=== PATIENT | female | born 1995 | race Caucasian/White ===

== ENCOUNTER 2020-09-17 01:01 | Emergency (ER) | payer MEDICAID, SELFPAY ==
[2020-09-17 03:56] VITALS: BP 119/59; PULSE 86; RESP 18; TEMP 37.1; O2SAT 100; BMI 34.7
--- NOTE | 2020-09-17 04:31 | ED_ITS ---
HPI - Skin/Abscess/Foreign Bdy General Chief complaint: Skin/Abscess/Foreign Body Stated complaint: Abscess Time Seen by Provider: 09/17/20 04:31 Source: patient Mode of arrival: ambulatory History of Present Illness HPI narrative: 25-year-old female with worsening abscess this started off as a pimple like structure on the right superior anterior chest wall without associated fevers, chills, nausea, vomiting, trauma. Patient states that she has gotten this 1 other time on her left thigh. Related Data Previous Rx's Medication Instructions Recorded sulfamethoxazole-trimethoprim 1 tab PO Q12H 5 Days #10 tab 09/17/20 [Bactrim DS] Allergies Allergy/AdvReac Type Severity Reaction Status Date / Time TUNA FISH Allergy Intermediate SWELLING Uncoded 02/21/20 16:29 SEAFOOD Allergy Mild RASH Uncoded 02/21/20 16:29 Review of Systems Review of Systems: Pertinent positives and negatives as stated in HPI 10 point review systems is otherwise negative. PMFSH Past Medical History Source: nursing notes reviewed Social History Social History Advance Directives: No Physical Exam Vital Signs: Vital Signs: Last Vital Signs Temp 98.7 F 09/17/20 03:56 Pulse 86 09/17/20 03:56 Resp 18 09/17/20 03:56 BP 119/59 L 09/17/20 03:56 Pulse Ox 100 09/17/20 03:56 Body Mass Index 34.7 VITAL SIGNS: Reviewed. GENERAL: Well developed, well nourished, in no acute distress. HEAD: Normocephalic/atraumatic OROPHARYNX: no oral lesions noted, posterior pharynx clear NECK: Supple, no adenopathy LUNGS: Normal breath sounds. No adventitious sounds or accessory muscle use. SpO2<100> CHEST WALL: There is an approximate 2-2.5 cm abscess to the right anterior chest wall without drainage, but fluctuant and palpated induration CARDIOVASCULAR: Regular rate and rhythm without noted murmurs ABDOMEN: Soft, non-tender, non-distended with bowel sounds. NEUROLOGIC: Alert and oriented x 4. Course Course Course Narrative: 25-year-old female with history and clinical presentation consistent with abscess to right chest wall without systemic symptoms. Incision and drainage was performed with copious amounts of purulence drainage expressed and patient will go home with instructions for warm moist compresses and preventive antibiotics. Procedures Abscess I/D Site: chest Side (if applicable): right Sedation/analgesia: none Technique: incised with blade Amount of fluid expressed (mL): 30 Sent for culture/gram staining?: No Irrigation: Yes Packing used?: none Complications: pain Discharge Plan Discharge Clinical Impression: Abscess of skin or subcutaneous tissue Patient Disposition: Home, Self-Care Instructions: Abscess (ED), Abscess Incision and Drainage (DC) Additional Instructions: 1. Tylenol 1000 mg, orally, every 6 hours as needed for pain control. 2. Ibuprofen 400 mg, orally with milk or food, every 6 hours as needed for pain control. 3. Continue to apply warm moist compresses 3 to 4 times a day to encourage further drainage. Do not hesitate to return to the emergency department should you experience any acute worsening of her symptoms. Prescriptions: New sulfamethoxazole-trimethoprim [Bactrim DS] 800-160 mg tablet 1 tab PO Q12H 5 Days Qty: 10 RF: 0 Referrals: [facility] [Primary Care Provider] - 2 days (Re-evaluated after incision and drainage of abscess to right anterior chest wall)
== END 2020-09-17 05:25 | disposition home or self-care (01) ==
PROVIDERS: Emergency Provider Student in an Organized Health Care Education/Training Program
DX: L02.213 Cutaneous abscess of chest wall (principal)
CPT/HCPCS: 10060; 99283; 99284

== ENCOUNTER 2021-06-08 14:25 | Emergency (ER) | payer MEDICAID, SELFPAY ==
[2021-06-08 15:41] VITALS: BP 120/70; PULSE 81; RESP 16; TEMP 36.4; O2SAT 99; BMI 29.2
[2021-06-08 16:14] LABS: COVID-19 Test Negative (Negative)
--- NOTE | 2021-06-08 17:05 | ED.GENADULT ---
HPI - General Adult General Chief complaint: General Medical Stated complaint: chills,body aches, headache Time Seen by Provider: 06/08/21 17:02 Source: patient Mode of arrival: ambulatory Limitations: no limitations History of Present Illness HPI narrative: 26 y/o otherwise healthy female presents to the ER with body aches, headaches, sore throat and runny nose that started yesterday. She lives at home with her son who was diagnosed with COVID-19 yesterday. He was seen in the ED for vomiting and fevers. She reports no fevers, she is nauseous but has not vomited. She is eating and drinking normally. She has no shortness of breath or chest pain. Her work told her that if she tests negative for COVID today she has to work tomorrow. complaint: COVID symptoms s/p exposure Onset (ago): day(s) (1) Location: head and back Radiation: back Severity: mild Quality: aching Pain Consistency: intermittent Relieving factors: rest Exacerbating factors: none Associated symptoms: nausea/vomiting (no vomiting) Treatments prior to arrival: none Related Data Previous Rx's Medication Instructions Recorded sulfamethoxazole 800 1 tab PO Q12H 5 Days #10 tab 09/17/20 mg-trimethoprim 160 mg tablet (Bactrim DS) Allergies Allergy/AdvReac Type Severity Reaction Status Date / Time TUNA FISH Allergy Intermediate SWELLING Uncoded 02/21/20 16:29 SEAFOOD Allergy Mild RASH Uncoded 02/21/20 16:29 Review of Systems Review of Systems: Constitutional: No Fever, No Chills ENT/Mouth: + sore throat, No Rhinorrhea, No Swallowing Difficulty Cardiovascular: No Chest Pain, No SOB Respiratory: No Cough, No Sputum, No Wheezing, No dyspnea Gastrointestinal: +Nausea, No Vomiting, No Diarrhea, No abdominal Pain Musculoskeletal: + joint pain, + Myalgias Skin: No Skin Lesions, No rash Neuro: + Weakness, No Numbness, No Dizziness, + Headache Heme/Lymph: No Bruising, No Lymphadenopathy PMFSH Past Medical History Attestation statement: The following information was validated with the patient. Social History Social History Advance Directives: No Advance Directives Information Provided: No Patient : No Physical Exam Vital Signs: Vital Signs: Last Vital Signs Temp 97.6 F 06/08/21 15:41 Pulse 81 06/08/21 15:41 Resp 16 06/08/21 15:41 BP 120/70 06/08/21 15:41 Pulse Ox 99 06/08/21 15:41 BMI result Body Mass Index 29.2 Appearance: Alert. Oriented X3. No acute distress. Eyes: Pupils equal, round and reactive to light. ENT: Pharynx normal. Neck: Normal inspection. Neck supple. CVS: Normal heart rate and rhythm. Pulses normal. Respiratory: No respiratory distress. Breath sounds normal. Skin: Skin warm and dry. Normal skin color. Normal skin turgor. No rashes. Extremities: Normal inspection, normal ROM Neuro: Oriented X 3. Grossly normal, nonfocal Course Course Course Narrative: 26 yo female presenting with mild bodyaches, headache, sore throat, and nausea after exposure to her son who was diagnosed with COVID yesterday. Her rapid antigen test was negative here. Highly suspect false negative. Will send PCR. Advised to not go to work while symptomatic, note provided. Stable for d/c home with presumed diagnosis of COVID-19. Medical Decision Making Lab Data Labs: Lab Results 06/08/21 Range/Units 15:45 COVID-19 (TIFFANIE) Negative (Negative) COVID-19 Clin Com See Note Discharge Plan Discharge Clinical Impression: COVID-19 Patient Disposition: Home, Self-Care Instructions: Covid-19 Viral Syndrome and Novel Coronavirus (ED) Hey/Ath Additional Instructions: You are presumed to be COVID POSITIVE given known exposure to your son. Your rapid antigen was negative, but this is most likely a false negative. A more reliable accurate test called a PCR test was sent - we will call you with the results this evening. Your exam and oxygen levels were normal. Rest. Drink plenty of fluids. Do not go out in public for the next 5 days per CDC guidelines. After that you must wear a mask. Take over the counter cold/flu medications as needed for your symptoms. Take Tylenol and/or Motrin as needed for fevers and body aches. Follow up with your doctor this week. If you shortness of breath worsens, if you develop difficulty breathing or any other concerning symptom come back to the ER for further evaluation. Prescriptions: No Action sulfamethoxazole-trimethoprim [Bactrim DS] 800-160 mg tablet 1 tab PO Q12H 5 Days Qty: 10 RF: 0 Stand Alone Forms: Work/School Release
[2021-06-08 18:00] LABS: Influenza A PCR NEGATIVE (Negative); Influenza B PCR NEGATIVE (Negative); Resp Syncy Virus RNA Qual PCR NEGATIVE (Negative); SARS COV2 PCR INHOUSE NEGATIVE (Negative)
== END 2021-06-08 17:37 | disposition home or self-care (01) ==
PROVIDERS: Physician Assistant; Emergency Provider Emergency Medicine
DX: U07.1 COVID-19 (principal); R51.9 Headache, unspecified
CPT/HCPCS: 0241U; 36415; 87635; 99283

== ENCOUNTER 2022-08-28 18:56 | Emergency (ER) | payer MEDICAID, SELFPAY ==
--- NOTE | 2022-08-28 19:00 | ED.DENTAL ---
HPI - Dental/Oral General Chief complaint: Dental/Oral Stated complaint: tooth pain Source: patient Mode of arrival: ambulatory History of Present Illness HPI Narrative: 27-year-old female past medical history dental issues, presenting to the ED complaining of right-sided lower dental pain x3 weeks. Admits saw dentist last week, had x-rays which were unremarkable, scheduled for crown on September 15. Denies fever, chills, sore throat, drainage from area, swelling MD Complaint: tooth pain Related Data Previous Rx's Medication Instructions Recorded sulfamethoxazole 800 1 tab PO Q12H 5 days #10 tabs 09/17/20 mg-trimethoprim 160 mg tablet (Bactrim DS) hydrocodone 5 mg-acetaminophen 325 1 tab PO Q8H PRN pain, severe 3 08/28/22 mg tablet days #5 tabs Allergies Allergy/AdvReac Type Severity Reaction Status Date / Time TUNA FISH Allergy Intermediate SWELLING Uncoded 02/21/20 16:29 SEAFOOD Allergy Mild RASH Uncoded 02/21/20 16:29 Review of Systems Review of Systems: Constitutional: No Fever, No Chills ENT/Mouth: +dental pain, No Ear Pain, No Nasal Congestion, No Sinus Pain, No Hoarseness, No sore throat, No Rhinorrhea, No Swallowing Difficulty Cardiovascular: No Chest Pain, No SOB Respiratory: No Cough, No Sputum Gastrointestinal: No Nausea, No Vomiting, No Abdominal pain Musculoskeletal: No joint pain, No Myalgias, No Joint Swelling Skin: No Skin Lesions, No rash Neuro: No Weakness, No Numbness, No Paresthesias Yes all other systems are reviewed and are negative Constitutional: Constitutional: Reports as per [facility] Past Medical History Attestation statement: The following information was validated with the patient. Physical Exam Vital Signs: Vital Signs: Last Vital Signs Temp 97.2 F 08/28/22 19:01 Pulse 88 08/28/22 19:01 Resp 20 08/28/22 19:01 BP 125/83 08/28/22 19:01 Pulse Ox 100 08/28/22 19:01 O2 Del Method Room Air 08/28/22 19:01 BMI result Body Mass Index 27.4 Const: General: cooperative, healthy appearing and no acute distress Orientation/consciousness: patient oriented x3 Limitations: no limitations HEENT: Other: No appreciable facial swelling. Right lower molar cracked, no visible pulp, no gingival erythema/swelling, no gingival tenderness. No fluctuance/induration. + tooth tenderness Head: Yes normal to inspection and Yes atraumatic Ears: hearing grossly normal bilaterally, external ears normal, TM's normal bilaterally and mastoids normal General nose exam: Normal external nose present Face and sinus: Yes normal facial exam Mouth: Normal oral and palatal mucosa present Throat: Yes posterior oropharynx normal, Yes tonsils normal, Yes uvula midline, No uvula laterally displaced and No uvular edema Eyes: General: appearance normal, both eyes and all related structures EOM: EOMs intact bilaterally Neck: Neck: Yes normal visual inspection, Yes no lymphadenopathy and Yes no meningeal signs Resp: Effort & Inspection: normal respiratory effort and no respiratory distress Cardio: Rate: regular rate Skin: Rashes: no rashes Wounds: no wounds Neuro: General: patient oriented x3, tone normal and no meningeal signs Gait exam (Neuro): Normal gait present Extrem: General: Yes normal to inspection Course Course Course Narrative: Results discussed with patient including worrisome signs and symptoms and strict return precautions, and when to return to the emergency department. They verbalized understanding and feel safe for discharge at this time. Medical Decision Making Medical Decision Making [facility] Narrative: 27-year-old female past medical history dental issues, presenting to the ED complaining of right-sided lower dental pain x3 weeks. On exam vital signs stable, NAD, nontoxic appearing, cracked right lower molar, no surrounding erythema/swelling or appreciable abscess formation. No evidence of acute infection at this time, & patient with recent negative x-rays. Concern for acute on chronic dental pain. Plan: Pain Control, dentist follow-up Please refer to course for remaining clinical decision making, interpretation of labs/imaging results, and discussions with consultants and/or family members. Differential Diagnosis Differential Diagnoses: The differential diagnosis associated with the presentation includes As above Lab Data [facility] Lab Attestation statement: I reviewed the patient's lab results. Radiology Impression Discussion of test interpretation with radiology: I have reviewed the radiologist's reading. External Record Review External record reviewed: Inpatient record, Office record, Outpatient record, Prior outpatient labs, Prior outpatient radiology, Primary care record and Outside ED record Discharge Plan Discharge Clinical Impression: Pain, dental Patient Disposition: Home, Self-Care Instructions: Toothache (ED) Additional Instructions: Mercer is opiate pain medication, take only when pain is severe for the next 3 days. Continue taking Tylenol and Motrin. Be aware Mercer his Tylenol mixed in do not exceed 4 g and 1 day Follow up with her dentist. If symptoms persist or worsen return to the ED Prescriptions: New hydrocodone-acetaminophen 5-325 mg tablet 1 tab PO Q8H PRN (Reason: pain, severe) 3 Days Qty: 5 0RF Rx Instructions: Partial Fill upon patient request. No Action sulfamethoxazole-trimethoprim [Bactrim DS] 800-160 mg tablet 1 tab PO Q12H 5 Days Qty: 10 0RF Referrals: José Guzman [Dentist] - Elkin Knox DMD [Dentist] - ED Physician,Generic [Emergency Provider] -
[2022-08-28 19:01] VITALS: BP 125/83; PULSE 88; RESP 20; TEMP 36.2; O2SAT 100; BMI 27.4
== END 2022-08-28 19:21 | disposition home or self-care (01) ==
LOC: HO.ED 19:14
PROVIDERS: Emergency Provider Emergency Medicine
DX: K08.89 Other specified disorders of teeth and supporting structures (principal)
CPT/HCPCS: 99283; 99284

== ENCOUNTER 2023-03-16 23:21 | Emergency (ER) | payer MEDICAID, SELFPAY ==
--- NOTE | ~2023-03-16 | XR_ITS ---
EXAMINATION: XR CHEST CLINICAL INFORMATION: Productive cough. COMPARISON: Chest x-ray November 28, 2008 TECHNIQUE: 2 views of the chest were obtained. FINDINGS: No significant abnormality is noted involving the heart, lungs, mediastinum, bony thorax or soft tissues. XR/XR chest 2V IMPRESSION: Unremarkable examination.
[2023-03-16 23:33] VITALS: BP 132/72; PULSE 93; RESP 17; TEMP 36.6; O2SAT 99; BMI 27.7
[2023-03-16 23:58] LABS: IDNOW Serial# 08D9AD1C; Strep A Nucleic Acid Negative (Negative)
[2023-03-16 23:59] LABS: COVID-19 Test Negative (Negative); IDNOW Serial# BCCEAD1C
[2023-03-17 00:03] LABS: IDNOW Serial# 9DB6401D; Influenza A Negative (Negative); Influenza B2 Negative (Negative)
--- NOTE | 2023-03-17 00:14 | ED.URI ---
HPI - URI/Sore Throat General Chief Complaint: Upper Respiratory Symptoms Stated Complaint: hurts to breathe, body pain Time Seen by Provider: 03/17/23 00:13 Source: patient Mode of arrival: ambulatory Limitations: no limitations History of Present Illness HPI Narrative: Patient history of asthma complaining of cough body aches chills for last 3- 4 days getting worse cough is mostly productive with mucopurulent phlegm no fever no chills no other family member sick patient had the labs done which were negative for COVID/flu/influenza and strep. Related Data Previous Rx's Medication Instructions Recorded sulfamethoxazole 800 1 tab PO Q12H 5 days #10 tabs 09/17/20 mg-trimethoprim 160 mg tablet (Bactrim DS) hydrocodone 5 mg-acetaminophen 325 1 tab PO Q8H PRN pain, severe 3 08/28/22 mg tablet days #5 tabs albuterol sulfate 90 mcg/actuation 2 puff inhalation Q4-6H PRN 03/17/23 aerosol inhaler (ProAir HFA) shortness of breath or wheezing #8.5 grams cefuroxime axetil 500 mg tablet 500 mg PO BID 10 days #20 tabs 03/17/23 prednisone 20 mg tablet 40 mg (2 x 20 mg) PO DAILY #10 tabs 03/17/23 Allergies Allergy/AdvReac Type Severity Reaction Status Date / Time TUNA FISH Allergy Intermediate SWELLING Uncoded 02/21/20 16:29 SEAFOOD Allergy Mild RASH Uncoded 02/21/20 16:29 Review of Systems Review of Systems: Yes all other systems are reviewed and are negative PMFSH Social History Social History Advance Directives: No Advance Directives Information Provided: Yes Physical Exam Vital Signs: Vital Signs: Last Vital Signs Temp 98 F 03/16/23 23:33 Pulse 93 03/16/23 23:33 Resp 17 03/16/23 23:33 BP 132/72 03/16/23 23:33 Pulse Ox 99 03/16/23 23:33 O2 Del Method Room Air 03/16/23 23:33 BMI result Body Mass Index 27.7 Appearance: Alert. Oriented X3. No acute distress. ENT: Pharynx normal. Oral Mucosa moist Neck: Normal inspection. Neck supple. CVS: Normal heart rate and rhythm. Pulses normal. Respiratory: No respiratory distress. Equal air entry bilateral, bilateral prolonged expiration no rales Abdomen: Soft and nontender. Bowel sounds are present, Skin: Skin warm and dry. Normal skin color. Normal skin turgor. Extremities: No lower extremity edema. No calf tenderness Neuro: Oriented X 3. Medications Administered Discontinued Medications Generic Name Dose Route Start Last Admin Trade Name Freq PRN Reason Stop Dose Admin Benzonatate 200 mg 03/17/23 00:26 03/17/23 00:40 Benzonatate 100 Mg Capsule PO 03/17/23 00:27 200 mg ONCE ONE Administration Cefuroxime Axetil 500 mg 03/17/23 00:26 03/17/23 00:42 Cefuroxime Axetil 500 Mg Tablet PO 03/17/23 00:27 500 mg ONCE ONE Administration Prednisone 40 mg 03/17/23 00:26 03/17/23 00:41 Prednisone 20 Mg Tablet PO 03/17/23 00:27 40 mg ONCE ONE Administration Medical Decision Making Medical Decision Making [facility] Narrative: Patient acute bronchitis chest x-ray negative for pneumonia discharge patient home on Ceftin and prednisone Differential Diagnosis Differential Diagnoses: The differential diagnosis associated with the presentation includes Bronchitis/atypical pneumonia Lab Data [facility] Lab Attestation statement: I reviewed the patient's lab results. Labs: Lab Results 03/16/23 Range/Units 23:41 COVID-19 (TIFFANIE) Negative (Negative) COVID-19 Clin Com See Note Influenza Type A (MARYURI) Negative (Negative) Influenza Type B (MARYURI) Negative (Negative) Influenza A & B Note See Note S. pyogenes GrpA MARYURI Negative (Negative) Discharge Plan Discharge Clinical Impression: Acute bronchitis Patient Disposition: Home, Self-Care Instructions: Acute Bronchitis (ED) Additional Instructions: Use inhaler every 4 hours as needed antibiotic and prednisone as prescribed Follow with PCP if not better Prescriptions: New prednisone 20 mg tablet 40 mg PO DAILY Qty: 10 0RF cefuroxime axetil 500 mg tablet 500 mg PO BID 10 Days Qty: 20 0RF albuterol sulfate [ProAir HFA] 90 mcg/actuation HFA aerosol inhaler 2 puff inhalation Q4-6H PRN (Reason: shortness of breath or wheezing) Qty: 8.5 0RF No Action sulfamethoxazole-trimethoprim [Bactrim DS] 800-160 mg tablet 1 tab PO Q12H 5 Days Qty: 10 0RF hydrocodone-acetaminophen 5-325 mg tablet 1 tab PO Q8H PRN (Reason: pain, severe) 3 Days Qty: 5 0RF Rx Instructions: Partial Fill upon patient request. Stand Alone Forms: Work/School Release Interventions: ED Discharge Assessment Last Done: 03/17/23 00:48 Discharge Date/Time: 03/17/23 00:49
[2023-03-17] MEDS: Benzonatate 100 MG CAPSULE 200 MG PO (00:40)
[2023-03-17] MEDS: predniSONE 20 MG TABLET 40 MG PO (00:41)
== END 2023-03-17 00:49 | disposition home or self-care (01) ==
PROVIDERS: Emergency Provider Internal Medicine
DX: J40 Bronchitis, not specified as acute or chronic (principal); Z11.52 Encounter for screening for COVID-19
CPT/HCPCS: 71046; 87502; 87635; 87651; 99282; 99283

== ENCOUNTER 2023-04-13 00:50 | Emergency (ER) | payer MEDICAID, SELFPAY ==
[2023-04-13 01:08] VITALS: BP 115/74; PULSE 89; RESP 18; TEMP 36.4; O2SAT 97; BMI 27.5
[2023-04-13 01:45] LABS: MANUAL DIFF FLAG NO
[2023-04-13 01:46] LABS: Basophils Percent Auto 0.7 % (0-2); Eosinophils Absolute Auto 0.2 X10*3/uL (0.0-0.4); Eosinophils Percent Auto 3.6 % (0-4); Hematocrit 37.5 % (37.0-47.0); Hemoglobin 12.5 g/dl (12.0-16.0); Imm Gran Abs Auto 0.01 X10*3/uL (0.00-0.03); Imm Gran Pct Auto 0.2 % (0.0-0.4); Lymphocytes Absolute Auto 3.2 X10*3/uL (1.2-4.9); Lymphocytes Percent Auto 52.3 % (20-40); Mean Corpuscular HGB Conc 33.3 g/dl (31.0-35.0); Mean Corpuscular Hemoglobin 30.5 pg (27.0-33.0); Mean Corpuscular Volume 91.5 fL (80.0-98.0); Mean Platelet Volume 9.7 fL (9.4-12.3); Monocytes Absolute Auto 0.4 X10*3/uL (0.1-1.2); Monocytes Percent Auto 6.9 % (2-11); Neutrophils Absolute Auto 2.2 x10*3/uL (2.0-8.3); Neutrophils Percent Auto 36.3 % (45-73); Platelet Count 215 X10*3/uL (160-400); Red Cell Distribution Width 13.2 % (11.0-16.0); White Blood Count 6.1 X10*3/uL (4.8-10.8)
[2023-04-13 01:55] LABS: Appearance Urine Clear; Color Urine Yellow; Glucose Urine UA Negative (Negative); Leukocyte Esterase Urine Negative (Negative); Nitrite Urine Negative (Negative); PH 5.5 (5.0-9.0); Specific Gravity - Urine 1.015 (1.005-1.025); Urine Blood Negative (Negative); Urine Ketones Negative (Negative); Urine Protein Negative (Neg-Trace)
[2023-04-13 02:01] LABS: Alanine Aminotransferase 23 U/L (0-31); Albumin Level 4.3 g/dL (3.5-5.0); Alkaline Phosphatase 39 U/L (39-117); Anion Gap 14 (12-20); Aspartate Amino Transferase 30 U/L (5-31); Bilirubin Direct 0.3 mg/dL (0.0-0.5); Bilirubin Total 0.8 mg/dL (0.0-1.0); Blood Urea Nitrogen 10 mg/dL (9-16); Calcium 8.6 mg/dL (8.4-10.2); Carbon Dioxide 23 mmol/L (22-29); Chloride 112 mmol/L (96-108); Creatinine Clr Calc Pharmacy 97.7; Estimated Glomerular Filt Rate > 60; Glucose Random 71 mg/dL (60-115); Lipase 25 U/L (8-78); Potassium 3.6 mmol/L (3.3-5.1); Sodium 145 mmol/L (135-145); Total Protein 7.1 g/dL (6.5-8.0)
[2023-04-13 02:15] LABS: HCG Quantitative < 2 mIU/mL
[2023-04-13 04:04] VITALS: BP 105/48; PULSE 86; RESP 16; O2SAT 100
--- NOTE | 2023-04-13 04:16 | ED.FEMALEGU ---
HPI - Female Genitourinary General Chief complaint: Urogenital-Female Stated complaint: Heavy Vaginal Bleeding x 1 month Time Seen by Provider: 04/13/23 04:05 Source: patient Mode of arrival: ambulatory Limitations: no limitations History of Present Illness HPI Narrative: 28 yo female with PMH of implanon use x 5 years now with spotting and small clots with brb x 1 month. No pain no hx of this has felt weak, did not follow up with her OBGYN. She came in to get checked out tonight. MD elicited complaint: vaginal bleeding Onset (ago): month(s) (1) Location of symptoms: pelvis Severity: mild Vaginal bleeding: bright red and clots (very small ) Exacerbating factors: none Relieving factors: none Associated symptoms: other (felt weak but now feels fine) Treatment prior to arrival: none Sexual activity: Yes Patient : No Related Data Previous Rx's Medication Instructions Recorded sulfamethoxazole 800 1 tab PO Q12H 5 days #10 tabs 09/17/20 mg-trimethoprim 160 mg tablet (Bactrim DS) hydrocodone 5 mg-acetaminophen 325 1 tab PO Q8H PRN pain, severe 3 08/28/22 mg tablet days #5 tabs albuterol sulfate 90 mcg/actuation 2 puff inhalation Q4-6H PRN 03/17/23 aerosol inhaler (ProAir HFA) shortness of breath or wheezing #8.5 grams cefuroxime axetil 500 mg tablet 500 mg PO BID 10 days #20 tabs 03/17/23 prednisone 20 mg tablet 40 mg (2 x 20 mg) PO DAILY #10 tabs 03/17/23 ferrous sulfate 325 mg (65 mg 325 mg PO DAILY #30 tabs 04/13/23 iron) tablet Allergies Allergy/AdvReac Type Severity Reaction Status Date / Time TUNA FISH Allergy Intermediate SWELLING Uncoded 02/21/20 16:29 Review of Systems Review of Systems: Constitutional : No Fever, No Chills ENT/Mouth : No sore throat, No Rhinorrhea Eyes: No Eye Pain, No Redness Cardiovascular : No Chest Pain, No SOB Respiratory : No Cough, No Sputum, No Wheezing Gastrointestinal : no Nausea, No Vomiting, No Diarrhea,no abdominal pain, Genitourinary : positive irregular bleeding, No Dysuria, No Urinary Frequency, no pelvic pain Musculoskeletal : No Myalgias Skin : No rash Neuro : No Weakness, No Headache Psych : No Anxiety/Panic, No Depression Heme/Lymph: No bruising, No Lymphadenopathy Endocrine : No Polyuria, No Polydipsia All other systems reviewed and are negative [facility] Past Medical History Source: old records reviewed Medical History COVID-19 Social History Social History (Updated 04/13/23 @ 04:31 by Teagan Mack DO) Patient Tobacco Use Status: Current everyday Tobacco user Physical Exam Vital Signs: Vital Signs: Last Vital Signs Temp 97.5 F 04/13/23 01:08 Pulse 86 04/13/23 04:04 Resp 16 04/13/23 04:04 BP 105/48 L 04/13/23 04:04 Pulse Ox 100 04/13/23 04:04 O2 Del Method Room Air 04/13/23 04:04 BMI result Body Mass Index 27.5 Appearance: Alert. Oriented X3. No acute distress. Eyes: Pupils equal, round and reactive to light. ENT: Pharynx normal. Neck: Normal inspection. Neck supple. CVS: Normal heart rate and rhythm. Pulses normal. Respiratory: No respiratory distress. Breath sounds normal. Abdomen: Soft and nontender. : Irem RN present os closed scant blood noted brb no clots, no discharge no pain noted Skin: Skin warm and dry. Normal skin color. Normal skin turgor. Extremities: No lower extremity edema. No calf ttp Neuro: Oriented X 3. No motor deficit. No sensory deficit. Medical Decision Making Medical Decision Making [facility] Narrative: 28 yo female with PMH of implanon that is about 5 years old has been having intermittent bleeding x 1 month and sometimes feels weak, no abdominal pain. This has never happened before. Has not seen her OBGYN at [place]. At this time will obtain basic labs, CT NG and refer to OB, no pain to suggest torsion/cyst/mass. no hx of fibroids Differential Diagnosis Differential Diagnoses: The differential diagnosis associated with the presentation includes DUB, withdrawal bleeding, Lab Data [facility] Lab Attestation statement: I reviewed the patient's lab results. 04/13/23 01:36 04/13/23 01:36 Labs: Lab Results 04/13/23 04/13/23 04/13/23 Range/Units 01:35 01:36 01:48 WBC 6.1 (4.8-10.8) X10*3/uL RBC 4.10 L (4.20-5.50) X10*6/uL Hgb 12.5 (12.0-16.0) g/dl Hct 37.5 (37.0-47.0) % MCV 91.5 (80.0-98.0) fL MCH 30.5 (27.0-33.0) pg MCHC 33.3 (31.0-35.0) g/dl RDW 13.2 (11.0-16.0) % Plt Count 215 (160-400) X10*3/uL MPV 9.7 (9.4-12.3) fL Immature Gran % (Auto) 0.2 (0.0-0.4) % Neut % (Auto) 36.3 L (45-73) % Lymph % (Auto) 52.3 H (20-40) % [place] % (Auto) 6.9 (2-11) % Eos % (Auto) 3.6 (0-4) % Baso % (Auto) 0.7 (0-2) % Lymph # (Auto) 3.2 (1.2-4.9) X10*3/uL [place] # (Auto) 0.4 (0.1-1.2) X10*3/uL Eos # (Auto) 0.2 (0.0-0.4) X10*3/uL Baso # (Auto) 0.0 (0.0-0.2) X10*3/uL Abs Immat Gran (auto) 0.01 (0.00-0.03) X10*3/uL Absolute Neuts (auto) 2.2 (2.0-8.3) x10*3/uL Absolute Nucleated RBC 0.000 (0.0-0.012) X10*3/uL Nucleated RBC % (auto) 0.0 (0.0-0.2) /100WBC Sodium 145 (135-145) mmol/L Potassium 3.6 (3.3-5.1) mmol/L Chloride 112 H (96-108) mmol/L Carbon Dioxide 23 (22-29) mmol/L Anion Gap 14 (12-20) BUN 10 (9-16) mg/dL Creatinine 0.83 (0.5-1.4) mg/dL Estim Creat Clear Calc 97.7 Estimated GFR > 60 Random Glucose 71 (60-115) mg/dL Calcium 8.6 (8.4-10.2) mg/dL Total Bilirubin 0.8 (0.0-1.0) mg/dL Direct Bilirubin 0.3 (0.0-0.5) mg/dL AST 30 (5-31) U/L ALT 23 (0-31) U/L Alkaline Phosphatase 39 (39-117) U/L Total Protein 7.1 (6.5-8.0) g/dL Albumin 4.3 (3.5-5.0) g/dL Lipase 25 (8-78) U/L Beta HCG, Quant < 2 mIU/mL Urine Color Yellow Urine Appearance Clear Urine pH 5.5 (5.0-9.0) Ur Specific [place] 1.015 (1.005-1.025) Urine Protein Negative (Neg-Trace) mg/dL Urine Glucose (UA) Negative (Negative) mg/dL Urine Ketones Negative (Negative) mg/dL Urine Blood Negative (Negative) Urine Nitrite Negative (Negative) Ur Leukocyte Esterase Negative (Negative) External Record Review External record reviewed: Prior outpatient labs Tests considered The following testing was considered but not selected: US but given no pain can follow up with her OB doubt torsion Chronic Conditions Patient?s care impacted by: Other Discharge Plan Discharge Clinical Impression: DUB (dysfunctional uterine bleeding) Patient Disposition: Home, Self-Care Instructions: Dysfunctional Uterine Bleeding (ED) Additional Instructions: return for fainting, passing large clots, worsening pain or any other concerns. practice safe sex and use a condom until you see your OBGYN. your OBGYN group is located at [address] [place] [address] [phone] please call to make appointment Prescriptions: New ferrous sulfate 325 mg (65 mg iron) tablet 325 mg PO DAILY Qty: 30 1RF No Action sulfamethoxazole-trimethoprim [Bactrim DS] 800-160 mg tablet 1 tab PO Q12H 5 Days Qty: 10 0RF prednisone 20 mg tablet 40 mg PO DAILY Qty: 10 0RF cefuroxime axetil 500 mg tablet 500 mg PO BID 10 Days Qty: 20 0RF albuterol sulfate [ProAir HFA] 90 mcg/actuation HFA aerosol inhaler 2 puff inhalation Q4-6H PRN (Reason: shortness of breath or wheezing) Qty: 8.5 0RF hydrocodone-acetaminophen 5-325 mg tablet 1 tab PO Q8H PRN (Reason: pain, severe) 3 Days Qty: 5 0RF Rx Instructions: Partial Fill upon patient request.
--- NOTE | 2023-04-13 04:25 | PC.NURSE ---
with Dr. Mack at bedside for vaginal exam; swab obtained to send to lab.
[2023-04-13 06:26] LABS: CT PCR NOT DETECTED (Not Detect.); NG PCR NOT DETECTED (Not Detect.)
== END 2023-04-13 05:02 | disposition home or self-care (01) ==
PROVIDERS: Emergency Provider Emergency Medicine
DX: N93.8 Other specified abnormal uterine and vaginal bleeding (principal); Z79.899 Other long term (current) drug therapy
CPT/HCPCS: 0353U; 36415; 80048; 80076; 81003; 83690; 84702; 85025; 99283